=== PATIENT | male | born 1950 | race Caucasian/White ===

== ENCOUNTER 2019-08-20 09:21 | Emergency (ER) | payer MEDICARE, OTHER ==
--- NOTE | 2019-08-20 09:30 | ED Physician Documentation ---
PD HPI CHEST PAIN - Stated complaint Stated Complaint: CHEST PAIN - History obtained from History obtained from: Patient - History of Present Illness Timing - onset: How many days ago (2) Timing - onset during: Rest Timing - duration: Hours Timing - details: Abrupt onset, Intermittant Pain level now: 0 Quality: Pain Location: Left shoulder/arm Improved by: Nothing Worsened by: Inspiration Associated symptoms: No: Shortness of air, Diaphoresis, Nausea, Vomiting, Feeling faint / dizzy, General Weakness, Palpitations, Cough Similar symptoms before: Has not had sx before Recently seen: Not recently seen - Additional information Additional information: This is a 69-year-old man who presents with his complaints that he was sitting watching TV 2 nights ago When he developed pain in the left upper back around the mid shoulder blade area. Seem to be increasing and it was "just "floating" he could not really pinpoint the exact location of the pain. Persisted through that night when he got up the next morning was pretty much gone in fact he and his yesterday went for an ice long walk and he did not have any pain. Is a were sitting watching TV again last night the pain returned and he could not get comfortable when he laid down to go to sleep he could not lay on his left side at all. He took an Advil 200 mg it did not seem to help. When he woke up this morning again he did not have any pain but he started to do some research on the Internet and became concerned that this could be some angina. He did have a prior angina and underwent stent placement 3 years ago in [place]. That was in the LAD vessel but there was another vessel that had 50% blockage that they did not put a stent in. About a year ago he had some EKG changes that prompted a nuclear stress test which did not show any ischemic changes. This does not feel like his typical angina type pain. He rates it at a 2 out of 10 at its worst but said that it is gone now unless he takes a deep breath. He also noted last night when he bent over to tie his shoes that it seemed to increase the pain. The day that this pain started he and his had driven here from there primary residence in [place] and unpacked the car that included 30 pound tubs of things they were bringing into their second residence here on . Denies any prior shoulder injury. Denies neck pain or pain radiating down the left arm. He had no associated nausea diaphoresis. He has not had shortness of breath or cough. No palpitations. He has not felt dizzy. No sore throat or stuffy nose. The patient does take a daily baby aspirin and is on Clopedigrel. Is been on Prilosec for years due to peptic ulcer disease. Review of Systems Constitutional: denies: Fever Eyes: denies: Decreased vision Ears: denies: Ear pain Nose: denies: Rhinorrhea / runny nose, Congestion Throat: denies: Sore throat Cardiac: denies: Chest pain / pressure, Palpitations Respiratory: denies: Dyspnea, Cough GI: denies: Abdominal Pain, Nausea, Vomiting : denies: Dysuria Skin: denies: Rash, Lesions Musculoskeletal: reports: Back pain. denies: Neck pain, Extremity pain, Joint pain, Extremity swelling Neurologic: denies: Generalized weakness, Syncope Endocrine: reports: Other (He is not diabetic) Immunocompromised: denies: Immunocompromised PD PAST MEDICAL HISTORY - Allergies Allergies/Adverse Reactions: Allergies Allergy/AdvReac Type Severity Reaction Status Date / Time No Known Drug Allergies Allergy Verified 08/20/19 09:56 PD ED PE NORMAL - Vitals Vital signs reviewed: Yes - General General: Alert and oriented X 3, No acute distress, Well developed/nourished - HEENT HEENT: Atraumatic, PERRL, EOMI, Ears normal, Moist mucous membranes, Pharynx benign - Neck Neck: Supple, no meningeal sign, No adenopathy, No JVD - Cardiac Cardiac: RRR, No murmur, Strong equal pulses - Respiratory Respiratory: No respiratory distress, Clear bilaterally - Abdomen Abdomen: Normal bowel sounds, Soft, Non tender - Derm Derm: Normal color, Warm and dry, No rash - Extremities Extremities: No deformity, No tenderness to palpate, Normal ROM s pain, No edema - Neuro Neuro: Alert and oriented X 3, cultural centre manager 2-12 intact, No motor deficit, No sensory deficit, Normal speech - Psych Psych: Normal mood, Normal affect Results - Vitals Vitals: Vital Signs - 24 hr 08/20/19 08/20/19 08/20/19 09:30 10:16 11:05 Temperature 36.8 C Heart Rate 54 L 46 L 48 L Respiratory 18 18 18 Rate Blood Pressure 179/82 H 145/87 H 138/77 H O2 Saturation 99 97 97 08/20/19 08/20/19 13:10 13:53 Temperature Heart Rate 49 L 47 L Respiratory 18 18 Rate Blood Pressure 152/78 H 133/83 H O2 Saturation 99 100 Oxygen O2 Source Room air - EKG (time done) 0924 Rate: Rate (enter#) Rhythm: Sinus bradycardia Intervals: Wide QRS Ischemia: ST depression (V5-V6) Compare to prior EKG: Old EKG unavailable 1311 Rate: Rate (enter#) (45) Rhythm: Sinus bradycardia Intervals: Wide QRS Ischemia: ST depression, T wave inversion, Non specific changes Other comments: Other comments (Patient does have some EKG changes that were present on his EKG earlier. There is some nonspecific T wave inversion now V4 and V5.) - Labs Labs: Laboratory Tests 08/20/19 08/20/19 08/20/19 09:30 09:30 09:30 WBC 7.2 RBC 5.42 Hgb 16.2 Hct 47.9 MCV 88.4 MCH 29.9 MCHC 33.8 RDW 13.5 Plt Count 185 MPV 9.2 Neut # (Auto) 5.2 Lymph # (Auto) 1.3 L Chester # (Auto) 0.5 Eos # (Auto) 0.1 Baso # (Auto) 0.1 Absolute Nucleated RBC 0.00 Nucleated RBC % 0.0 D-Dimer Sodium 140 Potassium 3.3 L Chloride 102 Carbon Dioxide 30 Anion Gap 8.0 BUN 18 Creatinine 0.8 Estimated GFR (MDRD) 95 Glucose 90 Calcium 9.3 Total Bilirubin 1.0 AST 17 ALT 25 Alkaline Phosphatase 65 Troponin I High Sens 5.4 Total Protein 7.7 Albumin 4.3 Globulin 3.4 Albumin/Globulin Ratio 1.3 Lipase 55 H 08/20/19 08/20/19 09:30 12:28 WBC RBC Hgb Hct MCV MCH MCHC RDW Plt Count MPV Neut # (Auto) Lymph # (Auto) Chester # (Auto) Eos # (Auto) Baso # (Auto) Absolute Nucleated RBC Nucleated RBC % D-Dimer < 200.0 L Sodium Potassium Chloride Carbon Dioxide Anion Gap BUN Creatinine Estimated GFR (MDRD) Glucose Calcium Total Bilirubin AST ALT Alkaline Phosphatase Troponin I High Sens 5.8 Total Protein Albumin Globulin Albumin/Globulin Ratio Lipase - Rads (name of study) cxr Radiology: EMP read contemporaneously (neg), See rad report PD MEDICAL DECISION MAKING - ED course Complexity details: reviewed results, re-evaluated patient, d/w patient, d/w family ED course: Patient is not having any pain currently. He reported that he had a heart rate in of 33 but we pulled the rhythm strip and it is reading a heart rate of 42 at that time. He never felt dizzy. He has not had any worsening of his pain and in fact says now that the pain is gone. He has had 2 serial troponins that are negative here in the emergency department. Chest x-ray is clear. He has a reason for having pain around the shoulder with the movement of several heavy totes when they arrived here on [facility] just 2 days ago. After lengthy discussion, He feels reassured that he has not had an CO and would prefer to be discharged home. He is to monitor closely at home for continued pain particularly if it is associated with any associated symptoms. Make sure that he is taking his baby aspirin. Return to the emergency department with any further concerns. Departure - Departure Disposition: 01 Home, Self Care Clinical Impression: Atypical chest pain Condition: Good Instructions: ED Chest Pain Atypical Unkn Cause Follow-Up: [facility] [Provider Group] Comments: No strenuous activity or lifting. Return if you continue to have episodes of pain particularly if they are associated with nausea, sweating dizziness, pain radiating down the arm, shortness of breath or other problems arise. It is okay to take ibuprofen 3 tablets every 8 hours with food.
[2019-08-20] MEDS ORDERED: ASPIRIN CHEW 81 MG TABLET PO STA (09:45)
[2019-08-20 09:52] LABS: BASOPHILS # (AUTO) 0.1 10^3/uL (0.0-0.1); BASOPHILS % (AUTO) 1.1 %; EOSINOPHILS # (AUTO) 0.1 10^3/uL (0.0-0.7); EOSINOPHILS % (AUTO) 1.1 %; HGB - HEMOGLOBIN 16.2 g/dL (14.0-18.0); LYMPHOCYTES # (AUTO) 1.3 10^3/uL (1.5-3.5); LYMPHOCYTES % (AUTO) 17.3 %; MEAN CORPUSCULAR HEMOGLOBIN 29.9 pg (27.0-31.0); MEAN CORPUSCULAR HGB CONC 33.8 g/dL (32.0-36.0); MEAN CORPUSCULAR VOLUME 88.4 fL (80.0-94.0); MEAN PLATELET VOLUME 9.2 fL (7.4-11.4); MONOCYTES # (AUTO) 0.5 10^3/uL (0.0-1.0); MONOCYTES % (AUTO) 7.2 %; NEUTROPHILS # (AUTO) 5.2 10^3/uL (1.5-6.6); NEUTROPHILS % (AUTO) 72.6 %; PLT - PLATELET COUNT 185 10^3/uL (130-450); RED BLOOD COUNT 5.42 10^6/uL (4.70-6.10); RED CELL DISTRIBUTION WIDTH 13.5 % (12.0-15.0); WHITE BLOOD COUNT 7.2 x10^3/uL (4.8-10.8)
[2019-08-20 10:13] LABS: ALBUMIN 4.3 g/dL (3.2-5.5); ALBUMIN/GLOBULIN RATIO 1.3 (1.0-2.2); CALCIUM 9.3 mg/dL (8.5-10.3); CREATININE 0.8 mg/dL (0.6-1.2); TOTAL PROTEIN 7.7 g/dL (6.7-8.2)
--- NOTE | 2019-08-20 10:35 | XRAY Report ---
Reason: chest pain Procedure Date: 08/20/2019 Accession Number: [id number] / [id number] Procedure: XR - Chest 1 View X-Ray CPT Code: 61996 Final Report FULL RESULT: EXAM: CHEST RADIOGRAPHY EXAM DATE: 08/20/2019 10:01 AM. CLINICAL HISTORY: Chest pain. COMPARISON: None. TECHNIQUE: 1 view. FINDINGS: Lungs/Pleura: No focal opacities evident. No pleural effusion. No pneumothorax. Mediastinum: Within exam limitations, the cardiomediastinal contour is normal. Other: None. IMPRESSION: Normal single view chest. RADIA
[2019-08-20 13:54] VITALS: BP 133/83
== END 2019-08-20 14:14 | disposition home or self-care (01) ==
LOC: ED 09:21
DX: R07.89 Other chest pain (principal)
CPT/HCPCS: 36415; 71045; 80053; 83690; 84484; 85025; 85379; 93005; 99284; A9270

== ENCOUNTER 2023-03-28 15:11 | Emergency (ER) | payer MEDICARE, OTHER ==
[2023-03-28 15:22] VITALS: BP 175/75
[2023-03-28] MEDS ORDERED: TETANUS/DIPHTHERIA/PERTUSSIS 0.5 ML SYRINGE IM ONE (15:26)
[2023-03-28] MEDS ORDERED: lidocaine 1% 20 ML MDV SUBQ ONE (15:33)
--- NOTE | 2023-03-28 15:35 | ED Physician Documentation ---
PD HPI UPPER EXT INJURY - Stated complaint Stated Complaint: RT ARM INJ - Chief complaint Chief Complaint: Ext Problem - History obtained from History obtained from: Patient - History of Present Illness Location: Right Type of injury: Fall, Puncture wound Where injury occurred: Home - Additonal information Additional information: 72-year-old male presents with right forearm puncture and laceration. The patient tripped and fell on a log while working at home. He sustained a small puncture and laceration to the right forearm. He also has a longer superficial scrape on the proximal forearm. He states is mildly tender to the area but he has no difficulty moving the elbow wrist or hand. He has normal sensation. He is not sure of his last Tdap. PD PAST MEDICAL HISTORY - Allergies Allergies/Adverse Reactions: Allergies Allergy/AdvReac Type Severity Reaction Status Date / Time No Known Drug Allergies Allergy Verified 08/20/19 09:56 PD ED PE NORMAL - Vitals Vital signs reviewed: Yes - General General: Alert and oriented X 3, No acute distress, Well developed/nourished - HEENT HEENT: Atraumatic, Moist mucous membranes - Derm Derm: Normal color, Warm and dry, No rash, Other (1.5 cm puncture laceration mid to right forearm. Subq tissue involved. 10cm superficial scratch proximal right forearm) - Extremities Extremities: No deformity, No tenderness to palpate, Normal ROM s pain, No edema Results - Vitals Vitals: Vital Signs - 24 hr 03/28/23 15:13 Temperature 36.6 C Heart Rate 57 L Respiratory 20 Rate Blood Pressure 175/75 H O2 Saturation 98 Oxygen O2 Source Room air Procedures - Laceration (location) Upper extremity right Length in cm: 2 Wound type: Irregular, Into subcut fat Neurovascular status: Sensory intact, Motor intact, Vascular intact Anesthesia: Lidocaine 1% Wound preparation: Hibiclens, Irrigated copiously NS Skin layer closure: Nylon, Size #-0 - enter number (4), Sutures - enter # (4) Other: Patient tolerated well, Tetanus booster given PD Medical Decision Making - ED course Complexity details: d/w patient ED course: 72-year-old male presented with right forearm injury as described in HPI. He has a superficial scratch as well as a larger puncture 6 laceration on the right forearm. I recommended that this be closed with sutures and patient agreed. We cleaned thoroughly with normal saline and Hibiclens and I then closed with 4 number four-point 0 nylon sutures with excellent wound edge approximation. A light pressure dressing was applied to the wound and patient was advised on home care wound instructions as well as return precautions. He was given updated Tdap today. Departure - Departure Disposition: 01 Home, Self Care Clinical Impression: Laceration of forearm Qualifiers: Encounter type: initial encounter Laterality: right Qualified Code(s): S51.811A - Laceration without foreign body of right forearm, initial encounter Condition: Good Instructions: ED Laceration Ext Sutr Stap Tape Comments: You had a laceration and puncture wound of the right forearm. We placed 4 stitches in the wound to close it and these can be removed in 7 to 10 days. Please keep the wound clean with gentle soap and water but otherwise keep dry, do not soak. You can apply antibacterial ointment to it if you desire. If there are any signs of infection such as redness, swelling, purulent drainage, increased pain or other new concerns, please return to the ER. Otherwise you can treat with a cool compress to help with swelling and discomfort and Tylenol or ibuprofen as needed. Forms: PCP List
== END 2023-03-28 16:09 | disposition home or self-care (01) ==
LOC: ED 15:11
DX: S51.811A Laceration without foreign body of right forearm, initial encounter (principal); W01.0XXA Fall on same level from slipping, tripping and stumbling without subsequent striking against object, initial encounter; Y92.009 Unspecified place in unspecified non-institutional (private) residence as the place of occurrence of the external cause; Z23 Encounter for immunization; Z71.85 Encounter for immunization safety counseling
CPT/HCPCS: 12001; 90471; 99283